=== PATIENT | female | born 1975 | race Caucasian/White ===

== ENCOUNTER 2024-12-15 11:22 | Emergency (ER) | payer OTHER ==
[2024-12-15 11:35] VITALS: BP 188/85; PULSE 55; TEMP 97.4; O2SAT 99
--- NOTE | 2024-12-15 12:17 | ERPHSYRPT ---
- History of Present Illness Time Seen by Provider: 12/15/24 12:05 Source: patient Exam Limitations: no limitations Patient Subjective Stated Complaint: right bottom tooth abcsess, pt is on Augmentin 875 since Wednesday, pt is supposed to be getting a root canal this next Wednesday Triage Nursing Assessment: Pt was brought to the ER by her daughter, hypertensive, rates pain as 9/10, pulses normal, skin n/w/d, no difficulty breathing, right lower face swollen, doesn't appear to be in any distress Physician History: Pt states she has had a right lower toothache for the past 4 days and swelling of the right jaw for the past 3 days; denies fever, chest pain, neck pain, shortness of air. Allergies/Adverse Reactions: No Known Drug Allergies Allergy (Verified 12/15/24 11:36) Home Medications: [place] Carbonate [[place] Carbonate ER] 450 mg PO BID 12/15/24 [History] lamoTRIgine [Lamictal Xr] 300 mg PO BID 12/15/24 [History] Hx Tetanus, Diphtheria Vaccination/Date Given: No Hx Influenza Vaccination/Date Given: No Hx Pneumococcal Vaccination/Date Given: No Travel Risk - International Travel Have you traveled outside of the country in past 3 weeks: No - Emerging Infectious Disease Are you exhibiting symptoms associated with any current EIDs: No - Review of Systems Constitutional: No Fever Ears, Nose, & Throat: Other (right lower toothache) Respiratory: No Dyspnea Cardiac: No Chest Pain Neurological: No Headache - Past Medical History Pertinent Past Medical History: Yes Neurological History: Migraines GI Medical History: Ulcer - Past Surgical History Past Surgical History: Yes Musculoskeletal: Orthopedic Surgery Female Surgical History: Hysterectomy Other Surgical History: shoulder - Female History Hx Now: No (hysterectomy) - Social History Smoking Status: Former smoker Exposure to second hand smoke: No Drug Use: none - Social Determinants of Health Will the patient participate in the screening: Yes Do you worry about a steady place to live?: No Do you have any problems with any of the following?: No known problems In the past 12 months,have you had to go without utilities?: No Transportation Issues: No Has anyone in your support network made you feel unsafe?: No Have you or anyone in your house had to go without enough: No - Nursing Vital Signs Nursing Vital Signs: Initial Vital Signs Temperature 97.4 F 12/15/24 11:28 Pulse Rate 55 12/15/24 11:28 Blood Pressure 188/85 12/15/24 11:28 O2 Sat by Pulse Oximetry 99 12/15/24 11:28 Pain Scale Pain Intensity 9 - Physical Exam General Appearance: alert Eye Exam: bilateral eye: normal inspection Ear Exam: bilateral ear: TM normal Nasal Exam: normal inspection Throat Exam: pharynx normal, dental tenderness (moderate tenderness with mild erythema and edema surrounding a right mandibular premolar), moist mucus membranes, No voice changes Neck Exam: normal inspection, non-tender Cardiovascular/Respiratory Exam: normal breath sounds, heart sounds normal Neurologic Exam: alert, cooperative Skin Exam: warm, dry SpO2 Interpretation: normal SpO2: 99 O2 Delivery: Room Air - Course Nursing assessment & vital signs reviewed: Yes - Progress Counseled pt/family regarding: diagnosis, need for follow-up - Departure Departure Disposition: Home Clinical Impression: Abscessed tooth Condition: Stable Critical Care Time: No Instructions: Tooth Abscess (DC) Additional Instructions: Follow up with private doctor tomorrow. Forms: Work/School Release Form Prescriptions: clindamycin HCL [Clindamycin HCl] 300 mg PO Q6H #40 cap
[2024-12-15] MEDS ORDERED: Rocephin 1000 MG INJ ONE (12:18)
[2024-12-15] MEDS ORDERED: NORCO 5/325 MG ONE (12:18)
[2024-12-15] MEDS: NORCO 5/325 MG PO ONE ×2 (12:23→12:30)
[2024-12-15] MEDS: Rocephin 1000 MG INJ IM ONE (12:23)
== END 2024-12-15 12:37 | disposition home or self-care (01) ==
LOC: ED 11:22
DX: K04.7 Periapical abscess without sinus (principal); K08.89 Other specified disorders of teeth and supporting structures; Z79.899 Other long term (current) drug therapy
CPT/HCPCS: 96372; 99283; J0696; A9270-GY

== ENCOUNTER 2025-06-15 06:23 | Day surgery (SDC) | payer OTHER ==
[2025-06-15] MEDS: Lactated Ringers 1,000 ML IV SCH (06:33)
[2025-06-15 06:37] VITALS: RESP 18; O2SAT 100
[2025-06-15] MEDS ORDERED: propofoL IV ONE ×2 (07:56→08:09)
[2025-06-15] MEDS ORDERED: Versed 2 MG/2 ML Injection ONE (07:56)
[2025-06-15] MEDS ORDERED: Xylocaine-Mpf 2% 5 Ml Vial ONE (07:56)
[2025-06-15 09:14] VITALS: BP 141/85; PULSE 56; TEMP 97.3
--- NOTE | 2025-06-18 09:09 | OP ---
SURGERY DATE/TIME: 06/15/2025 [id number] PREOPERATIVE DIAGNOSES: History of gastric ulcer and screening colon exam. POSTOPERATIVE DIAGNOSES: Moderate gastritis and normal colon. PROCEDURES: Esophagogastroduodenoscopy with cold forceps biopsy and colonoscopy. SURGEON: Lucho Jackson MD. ANESTHESIA: Medications given by the anesthesia department. INDICATIONS: The patient is a 50-year-old white female, presenting now for endoscopic evaluation. She reports that 3 years ago she had been diagnosed endoscopically with a gastric ulcer, which has never been looked at since. The patient did complain of abdominal discomfort, constipation, and diarrhea. The patient desired to have a screening colonoscopy performed at the same time. The patient was described the risks of the procedure including the risks of perforation, phlebitis, untoward reaction to medications, bleeding, and missed lesions. The patient verbalized her understanding and desired to have the procedure performed. DESCRIPTION OF PROCEDURE AND FINDINGS: The patient was given medications by the anesthesia department. She had continuous pulse oximetry, ECG monitoring, and intermittent blood pressure monitoring during the examination. She was placed in the left lateral decubitus position. A bite block was placed. A flexible Olympus gastroscope was used to intubate the oropharynx. The esophagus was entered with ease and was normal throughout its length. The stomach was entered where normal gastric rugal folds were seen. These distended nicely with insufflation of air and the scope was passed along the greater curvature of the stomach and the antrum area where there was noted to be moderate gastritis. The pylorus was encountered and intubated. The duodenum was inspected and found to be normal. The scope was withdrawn towards the stomach and a retroflexed view was obtained of the lesser curvature, fundus, and cardia regions of the stomach. These appeared to be essentially normal. The scope was then redirected towards the gastric antrum and biopsies were obtained to rule out the presence of Helicobacter pylori-type organisms. The scope was then removed from the patient. Next, a digital rectal examination was performed and revealed normal anal sphincter tone and no masses. The flexible Olympus videocolonoscope was used to intubate the rectum. A view of the colon was developed sequentially to the cecum. Upon insertion and withdrawal, including retroflexion view of the rectum, no mucosal lesions were encountered. The scope was removed from the patient who tolerated the procedure well and was sent back to outpatient recovery unit in good condition. The prep was noted to be fair to good.
== END 2025-06-15 09:26 | disposition home or self-care (01) ==
LOC: SDC 06:23
PROVIDERS: ATTEND Family Medicine
DX: Z12.11 Encounter for screening for malignant neoplasm of colon (principal); Z87.19 Personal history of other diseases of the digestive system; K29.70 Gastritis, unspecified, without bleeding